=== PATIENT | female | born 1985 | race Caucasian/White ===

== ENCOUNTER 2019-01-03 11:23 | Inpatient (IN) | payer MEDICAID ==
[~2019-01-03] VITALS: Ht 152 cm; Wt 90.7 kg
[2019-01-03] MEDS ORDERED: LR 1,000 ML IV ONE (11:41)
[2019-01-03] MEDS ORDERED: CITRIC ACID/SODIUM CITRATE 30 ML UDC PO ONE (11:45)
[2019-01-03] MEDS ORDERED: CEFAZOLIN 2 GM IVPB PREMIX 50 ML IV ONE (11:45)
[2019-01-03] MEDS ORDERED: METOCLOPRAMIDE HCL 10 MG/2 ML VIAL IVP ONE (11:45)
[2019-01-03 12:24] LABS: BASOPHILS % (AUTO) 0.5 % (0.0-2.0); EOSINOPHILS # (AUTO) 0.1 K/uL (0.0-0.4); EOSINOPHILS % (AUTO) 1.2 % (0.0-4.0); HEMATOCRIT 36.5 % (36-48); HEMOGLOBIN 12.4 g/dL (12.0-16.0); LYMPHOCYTES # (AUTO) 2.7 K/uL (1.0-5.5); LYMPHOCYTES % (AUTO) 27.5 % (20.5-51.5); MEAN CORPUSCULAR HEMOGLOBIN 28 pg (27-31); MEAN CORPUSCULAR HGB CONC 34 % (32-36); MEAN CORPUSCULAR VOLUME 82 fL (79.0-98.0); MONOCYTES # (AUTO) 0.7 K/uL (0.0-1.0); MONOCYTES % (AUTO) 6.8 % (1.7-9.3); NEUTROPHILS # (AUTO) 6.2 K/uL (1.8-7.7); PLATELET COUNT (AUTO) 178 K/uL (130-430); RED BLOOD CELL COUNT(AUTO) 4.44 MIL/uL (4.2-6.2); RED CELL DISTRIBUTION WIDTH 16.2 % (9.0-15.0); WHITE BLOOD COUNT (AUTO) 9.7 K/uL (4.8-10.8)
[2019-01-03] MEDS ORDERED: NALBUPHINE HCL 10 MG/ML AMP IVP PRN (13:15)
[2019-01-03] MEDS ORDERED: KETOROLAC TROMETHAMINE 60 MG/2 ML VIAL IM PRN (13:15)
[2019-01-03] MEDS ORDERED: NALOXONE HCL 0.4 MG/ML AMP (NARCAN) IVP PRN ×2 (13:15)
[2019-01-03] MEDS ORDERED: MORPHINE SULFATE 10MG/10ML PF AMP SP SCH (13:15)
[2019-01-03] MEDS ORDERED: fentaNYL CITRATE/PF 100 MCG/2 ML AMP IVP PRN ×2 (13:15)
[2019-01-03] MEDS ORDERED: DIPHENHYDRAMINE INJ 50 MG/ML VIAL IVP PRN (13:15)
[2019-01-03] MEDS ORDERED: ONDANSETRON HCL 4 MG/2 ML VIAL IVP PRN (13:15)
[2019-01-03] MEDS ORDERED: OXYTOCIN 10 UNIT/ML VIAL ONE (13:19)
[2019-01-03] MEDS ORDERED: OXYTOCIN/0.9 % SODIUM CHLORIDE 1,000 ML IV ONE ×2 (13:22→13:30)
[2019-01-03] MEDS ORDERED: ANUSOL 1 EA SUPP.RECT (PREPARATION H) RC PRN (13:30)
[2019-01-03] MEDS ORDERED: MORPHINE SULFATE 10 MG/ML VIAL IVP PRN (13:30)
[2019-01-03] MEDS ORDERED: LANOLIN 7 GM OINT. TP PRN (13:30)
[2019-01-03] MEDS ORDERED: LR 1,000 ML IV SCH (13:30)
[2019-01-03] MEDS ORDERED: BISACODYL 10 MG/SUPPOSITORY RC PRN (13:30)
[2019-01-03] MEDS ORDERED: IBUPROFEN 600 MG TABLET PO PRN (13:30)
[2019-01-03] MEDS ORDERED: HYDROcodone/ACETAMIN 5-325 MG TAB (NORCO/ VICODIN) PO PRN (13:30)
[2019-01-03] MEDS ORDERED: SENNOSIDES/DOCUSATE SODIUM 1 TAB TABLET(SENOKOT-S) PO PRN (13:30)
[2019-01-03 13:36] LABS: BILIRUBIN,URINE NEGATIVE (NEGATIVE); BLOOD, URINE 1+ (NEGATIVE); CLARITY/URINE HAZY (CLEAR); COLOR,URINE YELLOW (YELLOW); GLUCOSE,URINE NEGATIVE (NEGATIVE); KETONES,URINE TRACE (NEGATIVE); LEUKOCYTE ESTERASE ,URINE 1+ (NEGATIVE); NITRITE, URINE NEGATIVE (NEGATIVE); PROTEIN URINE TRACE (NEGATIVE); UROBILINOGEN,URINE 0.2 (0.2-1.0)
[2019-01-03] MEDS ORDERED: BUPIVACAINE /DEX PF 0.75% SPINAL 2 ML AMP INJ ONE (13:40)
[2019-01-03] MEDS ORDERED: KETOROLAC TROMETHAMINE 30 MG VIAL ONE (13:40)
[2019-01-03] MEDS ORDERED: LR 1,000 ML IV.SOLN IV ONE (13:40)
[2019-01-03] MEDS ORDERED: ONDANSETRON HCL 4 MG/2 ML VIAL ONE (13:40)
[2019-01-03] MEDS ORDERED: NS IRRIG SOLN 1000 ML IR ONE (13:40)
[2019-01-03] MEDS ORDERED: MORPHINE SULFATE 10MG/10ML PF AMP ONE (13:40)
[2019-01-03] MEDS ORDERED: OXYTOCIN/0.9 % SODIUM CHLORIDE 20 UNITS/1,000 ML BAG IV ONE (13:40)
[2019-01-03 14:14] LABS: BACTERIA,URINE MODERATE /HPF (None Seen); MUCUS,URINE 1+ /LPF (None Seen); RBC,URINE 0-3 /HPF (0-3); WBC,URINE 20-50 /HPF (0-3)
[2019-01-03 19:06] VITALS: BP_SYST 122
[2019-01-04] MEDS: IBUPROFEN 600 MG TABLET PO SCH ×4 (06:25→23:58)
[2019-01-04 07:35] LABS: BASOPHILS % (AUTO) 0.6 % (0.0-2.0); EOSINOPHILS # (AUTO) 0.1 K/uL (0.0-0.4); EOSINOPHILS % (AUTO) 1.5 % (0.0-4.0); HEMATOCRIT 33.9 % (36-48); HEMOGLOBIN 11.3 g/dL (12.0-16.0); LYMPHOCYTES # (AUTO) 1.4 K/uL (1.0-5.5); LYMPHOCYTES % (AUTO) 16.7 % (20.5-51.5); MEAN CORPUSCULAR HEMOGLOBIN 28 pg (27-31); MEAN CORPUSCULAR HGB CONC 33 % (32-36); MEAN CORPUSCULAR VOLUME 84 fL (79.0-98.0); MONOCYTES # (AUTO) 0.5 K/uL (0.0-1.0); MONOCYTES % (AUTO) 6.4 % (1.7-9.3); NEUTROPHILS # (AUTO) 6.1 K/uL (1.8-7.7); NEUTROPHILS % (AUTO) 74.8 % (40.0-70.0); PLATELET COUNT (AUTO) 117 K/uL (130-430); RED BLOOD CELL COUNT(AUTO) 4.07 MIL/uL (4.2-6.2); RED CELL DISTRIBUTION WIDTH 15.9 % (9.0-15.0); WHITE BLOOD COUNT (AUTO) 8.1 K/uL (4.8-10.8)
[2019-01-04] MEDS ORDERED: LEVOTHYROXINE SODIUM 0.05 MG TABLET PO ONE (10:30)
[2019-01-04] MEDS: SIMETHICONE 80 MG TAB.CHEW PO PRN ×2 (13:54→22:15)
[2019-01-04] MEDS: HYDROcodone/ACETAMIN 5-325 MG TAB (NORCO/ VICODIN) PO PRN ×2 (17:47→22:16)
[2019-01-04] MEDS: DOCUSATE SODIUM 100 MG CAPSULE PO PRN (22:15)
[2019-01-05] MEDS: IBUPROFEN 600 MG TABLET PO SCH ×4 (05:55→23:40)
[2019-01-05] MEDS: LEVOTHYROXINE SODIUM 0.05 MG TABLET PO SCH (05:56)
[2019-01-05] MEDS: HYDROcodone/ACETAMIN 5-325 MG TAB (NORCO/ VICODIN) PO PRN ×3 (09:15→18:08)
[2019-01-05] MEDS: SIMETHICONE 80 MG TAB.CHEW PO PRN (23:39)
[2019-01-05] MEDS: DOCUSATE SODIUM 100 MG CAPSULE PO PRN (23:39)
[2019-01-06] MEDS: LEVOTHYROXINE SODIUM 0.05 MG TABLET PO SCH (05:53)
[2019-01-06] MEDS: IBUPROFEN 600 MG TABLET PO SCH ×3 (05:53→17:51)
[2019-01-06] MEDS: HYDROcodone/ACETAMIN 5-325 MG TAB (NORCO/ VICODIN) PO PRN ×2 (08:16→17:20)
== END 2019-01-06 18:40 | disposition home or self-care (01) | DRG 540 ==
LOC: SPU 11:23
PROVIDERS: ADMIT Obstetrics & Gynecology; ATTEND Obstetrics & Gynecology
PROC: 3E033VJ Introduction of Other Hormone into Peripheral Vein, Percutaneous Approach (ICD-10-PCS; 2019-01-03)
PROC: 10D00Z1 Extraction of Products of Conception, Low, Open Approach (ICD-10-PCS; principal; 2019-01-03 12:00)
DX: O34.211 Maternal care for low transverse scar from previous cesarean delivery (principal); E03.9 Hypothyroidism, unspecified; O99.284 Endocrine, nutritional and metabolic diseases complicating childbirth; Z3A.39 39 weeks gestation of pregnancy; Z37.0 Single live birth
CPT/HCPCS: 36415; 81000-TC; 85025; 86592; 86886; 86900; 86901; 87086; 94760; J0690; J1200; J1885; J2274; J2405; J2590; J3490; J7120

== ENCOUNTER 2019-03-01 11:26 | Emergency (ER) | payer MEDICAID ==
[~2019-03-01] VITALS: Ht 154.9 cm; Wt 81.6 kg
[2019-03-01 11:42] VITALS: BP_SYST 128
--- NOTE | 2019-03-01 12:08 | NUR ---
Patient to ER bed 08 to gown for evaluation. Side rails up.
--- NOTE | 2019-03-01 12:10 | NUR ---
Patient arrived via POV, accompanied by family. Patient AAOX4, and ambulatory with steady gait. Patient c/c of cough, congestion, and fever. Patient states she has been sick for 3-4 days. Will continue to follow up and monitor.
--- NOTE | 2019-03-01 12:11 | NUR ---
ER at bedside examining patient.
--- NOTE | 2019-03-01 12:56 | NUR ---
Spoke with lab, critical value called. Patient positive for Influenza B. MD Grace made aware.
--- NOTE | 2019-03-01 13:37 | NUR ---
Dr Grace at bedside explaining results to patient
[2019-03-01 13:55] VITALS: BP_SYST 128
--- NOTE | 2019-03-01 13:55 | NUR ---
Patient given written and verbal discharge instructions and verbalizes understanding. ER MD discussed with patient the results and treatment provided. Patient in stable condition. ID arm band removed. Rx of Robitussin and Tylenol given. Patient educated on pain management and to follow up with PMD. Pain Scale 2/10 tolerable for pt. Opportunity for questions provided and answered. Medication side effect fact sheet provided.
[2019-03-01] MEDS ORDERED: LIDOCAINE VISCOUS 2%, 15 ML UDC ONE (15:43)
== END 2019-03-01 13:55 | disposition home or self-care (01) ==
LOC: SED 11:26
DX: J10.1 Influenza due to other identified influenza virus with other respiratory manifestations (principal)
CPT/HCPCS: 36415; 86710; 99283; J2001

== ENCOUNTER 2020-09-01 16:02 | Emergency (ER) | payer MEDICAID ==
[~2020-09-01] VITALS: Ht 152.4 cm; Wt 93.4 kg
[2020-09-01 16:11] VITALS: BP_SYST 112
[2020-09-01] MEDS ORDERED: TRAM50TA2 PO (17:14)
[2020-09-01] MEDS ORDERED: NAPR-688 PO (17:14)
[2020-09-01 17:34] VITALS: BP_SYST 112
== END 2020-09-01 17:35 | disposition home or self-care (01) ==
LOC: SED 16:02
DX: M54.42 Lumbago with sciatica, left side (principal); M54.41 Lumbago with sciatica, right side; Z79.899 Other long term (current) drug therapy
CPT/HCPCS: 72100-TC; 81025; 99283

== ENCOUNTER 2021-06-22 23:32 | Emergency (ER) | payer MEDICAID ==
[~2021-06-22] VITALS: Ht 157.5 cm; Wt 81.6 kg
[~2021-06-22 23:32] MED LIST: NAPR-688 PO; TRAM50TA2 PO
[2021-06-22 23:40] VITALS: BP_SYST 125
--- NOTE | 2021-06-22 23:40 | NUR ---
Patient triaged and placed in waiting room. VSS and patient appears in no acute distress at this time.Awaiting available bed, and MD notified of need for MSE.
[2021-06-23 00:42] LABS: BASOPHILS % (AUTO) 0.2 % (0.0-2.0); EOSINOPHILS # (AUTO) 0.1 K/uL (0.0-0.4); EOSINOPHILS % (AUTO) 1.4 % (0.0-4.0); HEMATOCRIT 39.1 % (36-48); LYMPHOCYTES # (AUTO) 2.7 K/uL (1.0-5.5); LYMPHOCYTES % (AUTO) 37.7 % (20.5-51.5); MEAN CORPUSCULAR HEMOGLOBIN 27 pg (27-31); MEAN CORPUSCULAR HGB CONC 33 % (32-36); MEAN CORPUSCULAR VOLUME 80 fL (79.0-98.0); MONOCYTES # (AUTO) 0.3 K/uL (0.0-1.0); MONOCYTES % (AUTO) 4.9 % (1.7-9.3); NEUTROPHILS % (AUTO) 55.8 % (40.0-70.0); PLATELET COUNT (AUTO) 199 K/uL (130-430); RED BLOOD CELL COUNT(AUTO) 4.87 MIL/uL (4.2-6.2); RED CELL DISTRIBUTION WIDTH 14.6 % (9.0-15.0); WHITE BLOOD COUNT (AUTO) 7.1 K/uL (4.8-10.8)
[2021-06-23 01:00] LABS: CALCIUM 9.9 mg/dL (8.4-11.0); CREATININE 0.7 mg/dL (0.55-1.30); POTASSIUM 3.7 mmol/L (3.5-5.1)
[2021-06-23 01:05] LABS: ALBUMIN 3.7 g/dL (3.4-4.8); TOTAL BILIRUBIN 0.4 mg/dL (0.0-1.0)
[2021-06-23 01:14] LABS: BILIRUBIN,URINE NEGATIVE (NEGATIVE); BLOOD, URINE 3+ (NEGATIVE); CLARITY/URINE CLEAR (CLEAR); GLUCOSE,URINE NEGATIVE (NEGATIVE); KETONES,URINE TRACE (NEGATIVE); LEUKOCYTE ESTERASE ,URINE 1+ (NEGATIVE); NITRITE, URINE POSITIVE (NEGATIVE); PROTEIN URINE 1+ (NEGATIVE)
--- NOTE | 2021-06-23 01:22 | NUR ---
Patient to ER bed 8 to gown for evaluation. Side rails up. Report given to Ijeoma MIRANDA(nik).
[2021-06-23 01:48] LABS: COLOR,URINE YELLOW (YELLOW)
[2021-06-23 01:49] LABS: RBC,URINE 80-100 /HPF (0-3)
[2021-06-23 01:50] LABS: BACTERIA,URINE None Seen /HPF (None Seen); MUCUS,URINE 1+ /LPF (None Seen)
--- NOTE | 2021-06-23 02:25 | NUR ---
# 20 gauge angiocath placed to R AC. Use of asceptic technique. Opsite placed over site. Blood return noted. Blood for lab drawn from site. Flushed with 10 cc of normal saline. No evidence of infiltration noted. Patient tolerated well.
[2021-06-23] MEDS ORDERED: MORPHINE 4 MG INJ. 4 MG/ML VIAL IVP ONE (02:30)
[2021-06-23] MEDS ORDERED: PANTOPRAZOLE SODIUM 40 MG/VIAL (PROTONIX) IVP ONE (02:30)
[2021-06-23] MEDS ORDERED: NACL 0.9% 1,000 ML IV ONE (02:30)
[2021-06-23] MEDS ORDERED: PROCHLORPERAZINE EDISYLATE 10 MG/2 ML VIAL IVP ONE (02:30)
--- NOTE | 2021-06-23 03:45 | NUR ---
Written consent for CT of abd/pelvis with contrast obtained. Addendum: 06/23/21 at 0501 by [email or web address] RUTH Raphael
--- NOTE | 2021-06-23 04:00 | NUR ---
Pt taken for CT imaging
--- NOTE | 2021-06-23 04:20 | NUR ---
Pt resting in bed, no acute signs of distress. Tolerated IV contrast well.
[2021-06-23 06:36] VITALS: BP_SYST 124
--- NOTE | 2021-06-23 06:38 | NUR ---
Patient given written and verbal discharge instructions and verbalizes understanding. ER MD Upton discussed with patient the results and treatment provided. Patient in stable condition. ID arm band removed. IV catheter removed intact and dressing applied, no active bleeding.0. Opportunity for questions provided and answered.
== END 2021-06-23 06:38 | disposition home or self-care (01) ==
LOC: SED 23:32
DX: R10.10 Upper abdominal pain, unspecified (principal)
CPT/HCPCS: 36415; 74177; 76376; 76705; 80053; 81000; 81025; 83690; 85025; 96365; 96375; 99284; C9113; J0780; J2270; Q9967